=== PATIENT | female | born 1970 | race Caucasian/White ===

== ENCOUNTER 2020-05-06 14:22 | Outpatient (CLI) | payer OTHER, SELFPAY ==
[2020-05-06 15:40] LABS: Anion Gap 4 mmol/L (8-16); Blood Urea Nitrogen 15 mg/dL (7-17); Calcium 8.9 mg/dL (8.4-10.2); Carbon Dioxide 30 mmol/L (22-30); Chloride 105 mmol/L (98-107); Estimated Glomerular Filt Rate 59; Glucose 99 mg/dL (65-105); Potassium 4.2 mmol/L (3.4-5.0); Sodium 139 mmol/L (137-145)
[2020-05-06 16:10] LABS: Thyroid Stimulating Hormone 0.657 uIU/mL (0.465-4.680)
== END 2020-05-06 14:23 | disposition home or self-care (01) ==
LOC: ANHLAB 14:23
PROVIDERS: PCP Family Medicine; Visit Provider Nurse Practitioner Family
DX: E66.01 Morbid (severe) obesity due to excess calories (principal); F31.9 Bipolar disorder, unspecified; G47.33 Obstructive sleep apnea (adult) (pediatric)
CPT/HCPCS: 36415; 80048; 84443

== ENCOUNTER 2021-02-09 14:35 | Emergency (ER) | payer OTHER, SELFPAY ==
[2021-02-09 14:45] VITALS: BP 123/55; PULSE 88; RESP 18; TEMP 37.8; O2SAT 98
--- NOTE | 2021-02-09 14:50 | ED.EAR ---
HPI - Ear Problem General Chief complaint: Ear Stated complaint: Bilateral Ear Pain Source: patient Mode of arrival: ambulatory Limitations: no limitations History of Present Illness HPI Narrative: Patient is a 50-year-old female who presents complaining of bilateral ear pain x2 weeks, reports increasing pain to right ear after returning on airplane last week. She reports flu vaccine 2 days ago and reports generalized body aches and fatigue from such. She denies fever, sore throat or cough. Patient reports congestion. She reports taking [id number] medications with limited relief. She denies significant medical history. She denies known exposure to Covid. 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 MD Complaint: ear pain Related Data Allergies Allergy/AdvReac Type Severity Reaction Status Date / Time No Known Allergies Allergy Verified 02/09/21 14:58 Review of Systems Review of Systems: CONSTITUTIONAL: Denies fever, chills, or sweats. EYES: Denies visual changes, redness, or discharge. ENT: Denies rhinorrhea, sore throat, reports bilateral otalgia and congestion CARDIOVASCULAR: Denies chest pain, palpitations, or edema. RESPIRATORY: Denies cough or dyspnea. GASTROINTESTINAL: Denies abdominal pain, nausea, vomiting, or diarrhea. GENITOURINARY: Denies dysuria or hematuria. SKIN: Denies rash or itching. MUSCULOSKELETAL: Denies back pain, joint pain, or myalgia. NEUROLOGIC: Denies headache, numbness, dizziness, or weakness. PSYCHIATRIC: Denies anxiety or depression. [facility] Past Medical History Medical History Bipolar 1 disorder Bowel obstruction Cataract Cervical high risk human papillomavirus (HPV) DNA test positive Low blood pressure Morbid obesity Stomach ulcer Tobacco abuse Surgical History Surgical History History of tubal ligation Family History Family History Sibling Diabetes mellitus Grandparent Diabetes mellitus Father Hypertension Mother Hypertension Other Family history of autism Family history of lupus erythematosus Family history of neuropathy Social History Social History Smoking packs per day: 1 Smoking cigarettes per day: 20.0 Smoking status: Current every day smoker Second hand tobacco smoke exposure: No Alcohol intake: never Substance use: never Comments At the time of signature, I have reviewed and agree with nursing past medical, surgical, social, and family history unless otherwise noted. Please see nursing chart for further information. There is no relevant family history pertinent to the presenting complaint. Exam Narrative: GENERAL: Well-appearing, well-nourished, and in no acute distress. HEAD: Normocephalic, atraumatic. EYES: EOMI. No redness or drainage. Conjunctiva are normal. ENT: Mucous membranes pink and moist. Nares clear. No rhinorrhea. Right TM cloudy, bulging and injected, left TM injected. Throat normal. Uvula midline. NECK: AROM. Supple. No lymphadenopathy. CHEST: No respiratory distress. Clear to auscultation. HEART: Regular rate and rhythm. EXTREMITIES: Normal range of motion. SKIN: Warm, dry, no rash. NEURO: No focal deficits. Alert and oriented x3. Gait steady. PSYCH: Normal affect. No signs of depression or anxiety. Course Vital Signs Vital signs: Vital Signs Temperature 37.8 C H 02/09/21 14:45 Pulse Rate 88 02/09/21 14:45 Respiratory Rate 18 02/09/21 14:45 Blood Pressure 123/55 L 02/09/21 14:45 Pulse Oximetry 98 02/09/21 14:45 Temperature 37.8 C H 02/09/21 14:45 Pulse Rate 88 02/09/21 14:45 Respiratory Rate 18 02/09/21 14:45 Blood Pressure 123/55 L 02/09/21 14:45 Pulse Oximetry 98 02/09/21 14:45 Reviewed-patient is info
== END 2021-02-09 15:12 | disposition home or self-care (01) ==
PROVIDERS: Emergency Provider Nurse Practitioner; PCP Family Medicine
DX: H66.001 Acute suppurative otitis media without spontaneous rupture of ear drum, right ear (principal); J06.9 Acute upper respiratory infection, unspecified; F17.210 Nicotine dependence, cigarettes, uncomplicated; E66.01 Morbid (severe) obesity due to excess calories; Z68.43 Body mass index [BMI] 50.0-59.9, adult; H26.9 Unspecified cataract
CPT/HCPCS: 99213; G0463

== ENCOUNTER 2023-06-15 15:30 | Outpatient (CLI) | payer OTHER, SELFPAY ==
--- NOTE | ~2023-06-15 | CT_ITS ---
EXAMINATION: CT sinus wo con DATE: 06/15/2023 15:57 INDICATION: Chronic maxillary sinusitis. TECHNIQUE: Computed tomography (CT) of the paranasal sinuses was performed without intravenous contra st. Iterative reconstruction technique was employed. The dose-length product was 329.05 mGy-cm. COMPARISON: None FINDINGS: There is mild mucosal thickening in the frontal recesses, ethmoid sinuses, sphenoid sinuses , and maxillary sinuses. There is a mucous retention cyst in left maxillary sinus. The nasal septum i s at midline. The ostiomeatal units are occluded at the hiatus semilunaris on either side. IMPRESSION: 1. Mild mucosal thickening in the paranasal sinuses with occlusion of the ostiomeatal units. Reviewed, dictated and finalized at location A. IMPRESSION: 1. Mild mucosal thickening in the paranasal sinuses with occlusion of the ostio meatal units.
== END 2023-06-15 15:31 | disposition home or self-care (01) ==
LOC: ANHIMG 15:31
PROVIDERS: PCP Family Medicine; Visit Provider Otolaryngology
DX: J34.89 Other specified disorders of nose and nasal sinuses (principal); J32.0 Chronic maxillary sinusitis; J31.0 Chronic rhinitis; K21.9 Gastro-esophageal reflux disease without esophagitis
CPT/HCPCS: 70486

== ENCOUNTER 2023-06-18 08:49 | Outpatient (CLI) | payer OTHER, SELFPAY ==
--- NOTE | 2023-07-05 16:53 | WPDSLEEPSTUD ---
Sleep Study Date of Study: 06/18/23 Ordering Provider: Eran Renee MD Interpreting Physician: Shama Mayo DO Sleep Study Type: Split Polysomnogram Height: 1.65 m Weight: 158.757 kg Body Mass Index: 58.2 Neck Circumference (inches): 18.25 [place]: 0 Reason for Sleep Study Issues with current CPAP. Needs new equipment. Sleep History The patient is a 52-year-old female with bipolar disorder, morbid obesity, tobacco use and previously diagnosed sleep apnea on CPAP that had a sleep study ordered by her primary care to get new equipment. All of her sleep history is based on a when she is using her CPAP. The patient denies awakening from sleep short of breath. She denies awakening at night with heartburn, belching or cough. She denies snoring. She constantly has trouble sleeping when she has a cold. She denies waking up gasping for air throughout the night. She denies having breathing problems at night observed by herself or others. She occasionally sweats excessively at night. She denies having heart palpitations or irregular heartbeats during the night. She denies falling asleep during the day and while driving. She denies sleep paralysis, cataplexy and hypnagogic / hypnopompic hallucinations. She occasionally has trouble at school or work due to sleepiness. She occasionally feels afraid of going to sleep. She rarely has nightmares. She rarely remembers her dreams. She occasionally has thoughts racing through her mind. She occasionally feels sad, depressed and anxious. She occasionally has muscular tension. She rarely notices parts of her body jerk. She rarely kicks during the night. She rarely has crawling and aching feelings in her legs and rarely has leg pain during the night. She rarely grinds her teeth during sleep and rarely awakens with morning jaw pain. She is occasionally bothered by pain during the day and occasionally awakened by pain during the night. She frequently wakes up feeling stiff in the morning. She frequently wakes up with sore or achy muscles. She occasionally wakes up with pain in the neck, spine and other joints. She goes to bed at 10:00 p.m. days and between midnight to 1:00 a.m. on the weekends. The amount of time it takes for her to fall asleep is variable. It can range from minutes to hours. She does not typically wake up throughout the night. She wakes up at 5:30 a.m. on weekdays and at [place] on the weekends. She typically gets 5 hours of sleep per night. She does not stay in bed after waking up in the morning. She currently lives with her son. She denies consuming any caffeinated beverages within 2 hours of bedtime. She denies engaging in physical exercise before bedtime. She denies reading and watching television before falling asleep. She denies taking naps in the afternoon or the evening. She consumes 1 caffeinated beverage per day. She smokes 1 pack of cigarettes per day. She denies alcohol and recreational drug use. [facility] Past Medical History Medical History Bipolar 1 disorder Bowel obstruction Cataract Cervical high risk human papillomavirus (HPV) DNA test positive COVID Low blood pressure Morbid obesity Stomach ulcer Tobacco abuse Surgical History Surgical History History of tubal ligation Family History Family History Grandparent Diabetes mellitus Father Hypertension Kidney stones Mother Hypertension Depression Sibling , suicide Diabetes mellitus Hypertension Other Family history of autism Family history of lupus erythematosus Family history of neuropathy Social History Social History Smoking packs per day: 1 Smoking cigarettes per day: 20.0 Smoking status: Current every day smoker Sec
[2023-07-05 17:09] VITALS: BMI 58.2
== END 2023-06-19 07:04 | disposition home or self-care (01) ==
LOC: ANHCSM 08:50
PROVIDERS: PCP Family Medicine; Visit Provider Family Medicine
DX: G47.33 Obstructive sleep apnea (adult) (pediatric) (principal); E66.01 Morbid (severe) obesity due to excess calories
CPT/HCPCS: 95811

== ENCOUNTER 2024-02-22 17:08 | Emergency (ER) | payer OTHER, SELFPAY ==
--- NOTE | 2024-02-22 17:14 | ED_ITS ---
HPI - Ear Problem General Chief complaint: Ear Stated complaint: ear infection Time Seen by Provider: 02/22/24 17:14 Source: patient Mode of arrival: ambulatory Limitations: no limitations History of Present Illness HPI Narrative: Zehra is a 53-year-old female patient presenting to the clinic today with complaints of right ear pain x3 days. She reports has left external ear pain with yellow discharge coming from the right ear. Denies any fever, chills, or body aches. Related Data Home Medications Medication Instructions Recorded Confirmed loratadine 10 mg tablet 10 mg PO DAILY 04/19/23 02/22/24 Allergies Allergy/AdvReac Type Severity Reaction Status Date / Time No Known Allergies Allergy Verified 02/22/24 17:17 Review of Systems Review of Systems: Pertinent positives per HPI. Patient denies any fever, chills, rash, headache, visual changes, dizziness, cough, runny nose, sore throat, shortness of breath, chest pain, palpitations, nausea, vomiting, diarrhea, constipation, abdominal pain, or any urinary issues. [facility] Past Medical History Medical History Bipolar 1 disorder Bowel obstruction Cataract Cervical high risk human papillomavirus (HPV) DNA test positive COVID Low blood pressure Morbid obesity Stomach ulcer Tobacco abuse Surgical History Surgical History History of tubal ligation Family History Family History Grandparent Diabetes mellitus Father Hypertension Kidney stones Mother Hypertension Depression Sibling , suicide Diabetes mellitus Hypertension Other Family history of autism Family history of lupus erythematosus Family history of neuropathy Social History Social History Smoking packs per day: 1 Smoking cigarettes per day: 20.0 Smoking status: Current every day smoker Second hand tobacco smoke exposure: No Alcohol intake: never Substance use: never Substance use type: does not use Lack of Transportation: No Lack of Food: Never True Current Housing: I Have Housing Concerned About Future Housing: No Difficulty Paying Gas/Electric Bills: No Difficulty Paying for Meds: No Currently Unemployed: No Education: Bachelor's Degree Difficulty w/ Childcare or Family Care: No Living arrangements: with family Occupation/Education: occupation 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 There is no relevant family history pertinent to the patient complaint. Exam Narrative: General: Well-developed, morbidly obese, in no apparent distress Head: Normocephalic, atraumatic Eyes: Pupils equally round and reactive to light bilaterally, EOM intact, sclera and conjunctive clear, no discharge, lids normal Ears: TMs intact and clear, left ear canals clear, right ear canal swollen and red with yellow mucopurulent discharge,grossly hearing normal. Nose: Nares patent, no discharge, no inflammation, no sinus tenderness. Mouth: Oropharynx without lesions or masses, good dentition, MMM. Neck: Supple, trachea midline, no enlargement of anterior or posterior cervical nodes, no thyroid masses or goiter palpable. Cardio: Regular rate and rhythm, s1 and s2 normal, no murmur appreciated. Resp: Clear to auscultation bilaterally anteriorly and posteriorly, no rhonchi, rales, wheezing or rubs Course Course Emergency Course: Portions of this record may have been created with voice recognition software. Level of Care: Express Care Visit Vital Signs Vital signs: Vital signs reviewed Medical Decision Making MDM Narrative Medical decision making narrative: At the time of visit patient is resting comfortably on the exam table. Patient appears to be nontoxic. Plan: I suspect patient has otitis externa. Prescription for ofloxacin ear drops was sent to the pharmacy. Supportive measures were discussed with the patient and they voiced understanding discharge instructions and agrees to treatment plan. Return precautions reviewed Differential Diagnosis Differential Diagnosis: Otitis media, otitis externa, eustachian tube dysfunction, cerumen impaction, upper respiratory infection, serous otitis Discharge Plan Discharge Clinical Impression: Otitis externa Qualifiers: Otitis externa type: unspecified type Chronicity: acute Laterality: right Qualified Code(s): H60.501 - Unspecified acute noninfective otitis externa, right ear Patient Disposition: Home, Self-Care Condition: Stable Instructions: Antibiotic Form, Swimmer's Ear (ED) Additional Instructions: Take any prescribed medications only as directed-ofloxacin ear drops Tylenol/motrin as needed for pain May use heating pad to alleviate pain If you get recurrent ear infections it may be warranted to follow up with ENT. Follow up with your PCP in 3-5 days if symptoms persist. Prescriptions: New ofloxacin 0.3 % drops 5 drp otic (ear) BID 7 Days Qty: 5 0RF No Action loratadine 10 mg tablet 10 mg PO DAILY furosemide [Lasix] 20 mg tablet 20 mg PO QAM Qty: 30 2RF Follow-up/Referrals: Eran Renee MD [Primary Care Provider] - Time of Disposition: 17:28 Quality NIHSS Nursing Documentation ED NIHSS nursing documentation: reviewed/agree
[2024-02-22 17:20] VITALS: BP 120/69; PULSE 102; RESP 18; TEMP 36.4; O2SAT 98
== END 2024-02-22 17:30 | disposition home or self-care (01) ==
PROVIDERS: Emergency Provider Nurse Practitioner Family; PCP Family Medicine
DX: H60.501 Unspecified acute noninfective otitis externa, right ear (principal); F17.210 Nicotine dependence, cigarettes, uncomplicated; E66.9 Obesity, unspecified; Z68.44 Body mass index [BMI] 60.0-69.9, adult
CPT/HCPCS: 99213; G0463

== ENCOUNTER 2024-06-02 10:47 | Outpatient (CLI) | payer OTHER, SELFPAY | END 2024-06-02 10:48 | disposition home or self-care (01) | LOC: ANHIMG 10:49 | PROVIDERS: PCP Family Medicine; Visit Provider Physician Assistant Medical | DX: R06.02 Shortness of breath (principal); Z72.0 Tobacco use | CPT/HCPCS: 71046 ==

== ENCOUNTER 2024-06-22 13:38 | Outpatient (CLI) | payer OTHER, SELFPAY ==
--- OUTSIDE RECORDS SUMMARY | 2024-06-22 14:02 | XMS_ITS | Clinical Summary ---
Author Organization [facility] Address [facility] [place] [address] Care Team Providers Care Geospatial Analyst Name Role Phone Eran Renee MD Primary Care Provider [phone] Allergies No known active allergies Medications ketorolac 0.5 % ophthalmic solution 2 Active mupirocin 2 % ointment Apply topically 2 (two) times daily. 2 Active ofloxacin 0.3 % ophthalmic solution INSTILL 1 DROP TO SURGICAL EYE THREE TIMES DAILY. START 2 DAYS BEFORE SURGERY 2 Active prednisoLONE acetate 1 % ophthalmic suspension 2 Active Active Problems Problem Noted Date Diagnosed Date Sudden of family member 12/30/2017 Abscess of leg, left 06/11/2015 Acid reflux 06/11/2015 Bipolar disorder, unspecified ([facility]) 06/11/2015 Staph infection 06/11/2015 Abdominal pain 02/21/2015 Cholelithiasis without obstruction 02/21/2015 Resolved Problems Problem Noted Date Diagnosed Date Resolved Date Encounter for preventive health examination 04/20/2013 09/01/2021 Encounters Date Type Department Care Team Description 04/03/2024 10:25 AM LAMP REPLACER - 04/03/2024 11:59 PM LAMP REPLACER Hospital Encounter [facility] [address] [place] [address] Cande Kiran NP Discharge Disposition: Home or Self Care (Routine Discharge) 04/03/2024 Orders Only [facility] [address] [place] [address] Cande Kiran NP 04/03/2024 Travel from Last 3 Months Immunizations Name Administration Dates Next Due MODERNA COVID-19 (12+) MRNA, LNP-S, PF, 100 MCG/ 0.5 ML DOSE 05/16/2020,04/19/2020 Tdap (Boostrix) 08/21/2022 Family History Medical History Relation Comments Sleep Apnea Father Relation Status Comments Father Alive Mother Alive Social History Tobacco Use Types Packs/Day Years Used Date Smoking Tobacco: Every Day Cigarettes 1 35 Smokeless Tobacco: Never Tobacco Cessation:Ready to Q uit: No; Counseling Given: Yes Alcohol Use Standard Drinks/Week Comments No 0 (1 standard drink = 0.6 oz pur e alcohol) AUDIT-C Answer Date Recorded Frequency of Alcohol Consumption Never 12/01/2018 Average Number of Drinks Not on file 019 Frequency of Binge Drinking Not on file 11/04 Comments No Sex and Gender Information Value Date Recorded Sex Assigned at Not on file Legal Sex Female 8:00 PM CDT Gender Identity Not on file Sexual Orientation Not on file Last Filed Vital Signs Vital Sign Reading Time Taken Comments Blood Pressure 121/87 08/21/2022 9:05 PM CDT Pulse 85 08/21/2022 9:05 PM CDT Temperature 36.3 C (97.3 F) 08/21/2022 9:05 PM CDT Respiratory Rate 18 08/21/2022 9:05 PM CDT Oxygen Saturation 95% 08/21/2022 9:05 PM CDT Inhaled Oxygen Concentration - - Weight 155.6 kg (343 lb) 08/21/2022 6:59 PM CDT Height 165.1 cm (5' 5 ) 08/21/2022 6:59 PM CDT Body Mass Index 57.08 08/21/2022 6:59 PM CDT Plan of Treatment Health Maintenance Due Date Last Done Comments Colorectal Cancer Screening Colonoscopy (10 Years) 1971 Annual Physical 10/24/1974 Pneumococcal Vaccine: Pediatrics (0 to 5 Years) and At-Risk Patients (6 to 64 Years) (1 of 2 - PCV) 10/24/1977 PHQ-2 (Physician [place]) 1983 Hepatitis C 10/24/1989 Hepatitis B Vaccines (1 of 3 - 19+ 3-dose series) 10/24/1990 Cervical Cancer Screening Pa p with HPV Testing (Age 30 to 64) Every 5 Years 10/24/2001 Mammogram Screening 2011 Zoster Vaccines (1 of 2) 10/24/2021 COVID-19 Vaccine (3 - 2023-2 5 season) 2023 05/16/2020, 04/19/2020 Influenza Adult (#1) 2024 01/30/2016 PHQ-2 (Physician [place]) 04/05/2024 Cervical Cancer Screening Pa p Smear (Age 30 to 64) Every 3 Years 08/25/2025 08/25/2022 Cervical Cancer Screening wi th HPV 08/25/2025 DTaP, Tdap and Td Vaccines ( 2 - Td or Tdap) 08/21/2032 08/21/2022, 12/07/2000 Meningococcal B Vaccine Aged Out No l onger eligible based on patient's age to complete this topic Meningococcal Vaccine Aged Out No myron марина eligible based on patient's age to complete this topic RSV Immunizations Under 20 Months Aged Out No longer eligible b ased on patient's age to complete this topic Procedures Procedure Name Priority Date/Time Associated Diagnosis Comments BASIC METABOLIC PANEL Routine 04/03/2024 10:34 AM LAMP REPLACER Edema from Last 3 Months Results * (ABNORMAL) BASIC METABOLIC PANEL (04/03/2024 10:34 AM LAMP REPLACER) GLUCOSE 96 70 - 99 MG/DL 04/03/2024 11:09 AM [facility] BUN 13 7 - 18 MG/DL 04/03/2024 11:09 AM [facility] CREATININE S/P/B 0.81 0.55 - 1.02 MG/DL 04/03/2024 11:09 AM [facility] SODIUM S/P/B 141 136 - 145 MMOL/L 04/03/2024 11:09 AM [facility] POTASSIUM S/P/B 4.3 3.5 - 5.1 MMOL/L 04/03/2024 11:09 AM [facility] CHLORIDE S/P/B 106 100 - 108 MMOL/L 04/03/2024 11:09 AM [facility] CO2 25.6 21 - 32 MMOL/L 04/03/2024 11:09 AM [facility] CALCIUM S/P/B 9.2 8.5 - 10.1 MG/DL 04/03/2024 11:09 AM [facility] ANION GAP 9.4 5 - 15 MMOL/L 04/03/2024 11:09 AM [facility] BUN CREATININE RATIO 16.0 6 - 26 04/03/2024 11:09 AM [facility] GFR ESTIMATE 87(L) >90 ML/MIN/1.7 3 M2 04/03/2024 11:09 AM [facility] Comment: NOTE: eGFR is not calculated for patients <18 years of age. This is an estimated GFR calculation using the new CKD EPI creatinine equation without race and so does not require a correction factor for race. This estimated GFR should not be used for calculating drug doses. 04/03/2024 10:3 4 AM LAMP REPLACER us Cande Kiran NP LABORATORY Final Result [facility] [address] [place] [address], [place] [phone] from Last 3 Months Insurance [employer] OPEN ACCESS [facility] Member Subscriber Plan / Payer (Ef fective 2023-Present) Name:Zehra Yeboah Relation to Subscriber:Self Name:Zehra Yeboah Payer ID:Not on file Group ID:Not on file Type:Not on file Address: [facility] [id number] [place] [id number] Care Teams Geospatial Analyst Relationship Specialty Start Date End Date Eran Renee MD [address] [address] PCP - General FAMILY PRACTICE 12/15/23
--- OUTSIDE RECORDS SUMMARY | 2024-06-22 14:02 | XMS_ITS | Encounter Summary ---
Author Organization [facility] Address [address] [place] [address] Phone Care Team Providers Care Golf Course Designer Name Role Phone Provider, None Primary Care Provider Eran Contreras MD Primary Care Provider [phone] Encounter Details Date Type Department Care Team (Latest Contact Info) Description 10/12/2022 Transcribe [facility] [address] [place] [id number] Felix Godfrey MD [address] [place] [address] Dysfunctional uterine bleeding (Primary Dx); Pre-op testing Social History Tobacco Use Types Packs/Day Years Used Date Smoking Tobacco: Every Day Cigarettes Smokeless Tobacco: Never Alcohol Use Standard Drinks/Week Comments No 0 (1 standard drink = 0.6 oz pur e alcohol) Sexually Active Control Partners Comments Never Abstinence Comments No Sex and Gender Information Value Date Recorded Sex Assigned at Not on file Legal Sex Female 11:42 AM CDT Gender Identity Not on file Sexual Orientation Not on file COVID-19 Exposure Response Date Recorded In the last 10 days, have yo u been in contact with someone who was confirmed or suspected to have Coronavirus/COVID-19? No / Unsure 10/13/2022 2:04 PM CDT documented as of this encounter Plan of Treatment Not on file documented as of this encounter Visit Diagnoses Diagnosis Dysfunctional uterine bleeding- Primary Other disorder of menstruation and other abnormal bleeding from female genital tract Pre-op testing Preoperative examination, unspecified documented in this encounter Care Teams Golf Course Designer Relationship Specialty Start Date End Date Provider, None [place] PCP - General 12/30/17 10/21/22 Eran Renee MD [address] [place] [address] PCP - General Family Medicine 10/22/22 documented as of this encounter
--- OUTSIDE RECORDS SUMMARY | 2024-06-22 14:02 | XMS_ITS | Clinical Summary ---
Author Organization [facility] Address [address] [place] [address] Phone Care Team Providers Care Repair Table Operator Name Role Phone Eran Renee MD Primary Care Provider [phone] Allergies No known active allergies Medications ibuprofen (MOTRIN) 200 MG Tablet Take 200 mg by mouth every 8 hours as needed. Active Active Problems Problem Noted Date Diagnosed Date Bipolar II disorder 12/30/2017 Sudden of family member 12/30/2017 Immunizations Immunization Administration Dates Next Due Covid-19, Mrna, Lnp-s, Pf, 1 00 Mcg Or 50 Mcg Dose (MODERNA) 05/16/2020,04/19/2020 TDAP Vaccine 08/21/2022 Family History Medical History Relation Name Comments Hypertension Father Obstructive Sleep Apnea Father Congestive Heart Failure Mother Depression Mother Hypertension Mother Relation Name Status Comments Father Alive Mother Alive Social History Tobacco Use Types Packs/Day Years Used Date Smoking Tobacco: Every Day Cigarettes Smokeless Tobacco: Never Alcohol Use Standard Drinks/Week Comments Not Currently 0 (1 standard drink = 0.6 oz pur e alcohol) Sexually Active Control Partners Comments Never Abstinence Comments No Sex and Gender Information Value Date Recorded Sex Assigned at Not on file Legal Sex Female 11:42 AM CDT Gender Identity Not on file Sexual Orientation Not on file Last Filed Vital Signs Vital Sign Reading Time Taken Comments Blood Pressure 142/92 11/03/2022 1:08 PM CDT Pulse 104 11/03/2022 1:08 PM CDT Temperature 36.5 C (97.7 F) 11/03/2022 1:08 PM CDT Respiratory Rate 20 11/03/2022 1:08 PM CDT Oxygen Saturation 98% 11/03/2022 1:08 PM CDT Inhaled Oxygen Concentration - - Weight 159.7 kg (352 lb) 11/03/2022 1:08 PM CDT Height 162.6 cm (5' 4 ) 11/03/2022 1:08 PM CDT Body Mass Index 60.42 11/03/2022 1:08 PM CDT Plan of Treatment Health Maintenance Due Date Last Done Comments Hepatitis C Virus (HCV) Screening 1970 Mammogram 1970 Pneumococcal Immunization (5 0+ years) (1 of 2 - PCV) 10/24/1990 HPV/Cotest 10/24/2001 Hepatitis B Immunization (3 of 3 - 19+ 3-dose series) 12/19/2003 08/06/2003, 06/18/2003 Colonoscopy 10/24/2016 Colorectal Cancer Screening 10/24/2016 Cologuard 10/24/2021 Immunochemical Fecal Occult Blood 10/24/2021 Zoster Immunization (1 of 2) 10/24/2021 Influenza Immunization (#1) 2023 01/30/2016 SARS-COV-2 Immunization ( - 2023- season) 2023 05/16/2020, 04/19/2020 Cervical Cancer Screening (CCS) 08/25/2025 Pap Smear 08/25/2025 08/25/2022 Td Immunization Every 10 Yea rs (Adults With 1 Tdap) 08/21/2032 08/21/2022, 12/07/2000 Respiratory Syncytial Virus (RSV) Immunization (Adult) (1 - 1-dose 75+ series) 10/24/2046 DTaP/Tdap/Td Immunization Discontinued 2022, 12/07/2000 Meningococcal Immunization (ACWY) Aged Out No longer eligible based on patient's age to complete this topic Rotavirus Immunization Aged Out No lo nger eligible based on patient's age to complete this topic Procedures Procedure Name Priority Date/Time Associated Diagnosis Comments PATHOLOGY CYTOLOGY LABORER EGG PRODUCING FARM Routine 08/25/2022 3:30 PM CDT Screening for cervical cancer from Last 3 Months or Most Recently Relevant to Health Maintenance Results * PATHOLOGY CYTOLOGY LABORER EGG PRODUCING FARM (08/25/2022 3:30 PM CDT) SPECIMEN ADEQUACY Satisfactory for evaluation. Endocervical/transf ormation zone component is present. 08/27/2022 2:11 PM CDT [facility] DESCRIPTIVE DIAGNOSIS NEGATIVE FOR INTRAEPITHELIAL LESIONS OR MALIGNANCY. 08/27/2022 2:11 PM CDT [facility] Automated Examination Analysis of this sample has been assisted by an automated imaging and review system ([employer] System, [employer], [place], [place]). This case is further evaluated and finalized by a asphalt still operator and/or pathologist. 08/27/2022 2:11 PM CDT [facility] Disclaimer The PAP smear is a screening test designed to detect cancerous or precancerous cells of the uterine cervix. It is one of the best means available for detection of cervical cancer but still carries an inherent false-negative rate. The consequences of a false-negative PAP result can be minimized by adhering to current screening guidelines. The following are general guidelines recommended by the ACS, ASCP, ASCCP, and ACOG: PAP testing is recommended every three years for women 21-29, Co-Testing , a PAP test in conjunction with an HPV (Human Papillomavirus) test for women ages 30-65, and no PAP or HPV testing for women under the age of 21 or older than 65 unless clinically indicated. 08/27/2022 2:11 PM CDT [facility] Other CERVIX UTERI STRUCTURE / Unknown Non-Phlebotomy Collection / Unknown 08/25/2022 3:30 PM CDT 08/25/2022 3:30 PM CDT us Melva Lopez APRN, UX DESIGN MANAGER PATHOLOGY/CYTOLOGY ORDER ANNI Final Result [facility] [address] [place] [address], [place] from Last 3 Months or Most Recently Relevant to Health Maintenance Insurance [employer]I Advance Directives Documents on File Type Date Recorded Patient Rolling Down Machine Operator Expl anation Power of Cost Consultant for Health Care 10/22/2022 5:26 AM POA Care Teams Repair Table Operator Relationship Specialty Start Date End Date Eran Renee MD [address] [place] [address] PCP - General Family Medicine 10/22/22
--- NOTE | 2024-06-23 14:14 | WPDPFTINT ---
PFT Procedure Performed PFT Procedure Performed Spirometry with Pre/Post Bronchodilator Plethysmography (Lung Vol) Diffusing Cap (DLCO) Flow Vol Loop PFT Interpretation Lung volumes were measured with the body plethysmography method. The diminished expiratory reserve volume is due to obesity. The remaining lung volumes are unremarkable. Spirometry showed normal expiratory flow rates and a normal FEV1 to FVC ratio of 86%. Following administration of a bronchodilator there was no significant increase in expiratory flow rates. Lung diffusion capacity is moderately reduced at 47% predicted. The flow volume loop is unremarkable. Impression: Spirometry and lung volumes within the normal range. Moderately reduced lung diffusion capacity.
== END 2024-06-22 13:39 | disposition home or self-care (01) ==
LOC: ANHPFT 13:38
PROVIDERS: PCP Family Medicine; Visit Provider Physician Assistant Medical
DX: R06.02 Shortness of breath (principal); Z72.0 Tobacco use
CPT/HCPCS: 94060; 94726; 94729

== ENCOUNTER 2024-12-19 08:59 | Outpatient (CLI) | payer OTHER, SELFPAY ==
[2024-12-19 09:26] LABS: Hematocrit 46.4 % (37.0-47.0); Hemoglobin 15.0 g/dL (12.0-15.0); Immature Granulocyte Percent A 0.4 % (0-0.5); Lymphocytes Absolute Auto 2.10 K/mm3 (0.9-3.2); Mean Corpuscular HGB Conc 32.3 g/dl (32-36); Mean Corpuscular Hemoglobin 29.8 pg (26-34); Mean Corpuscular Volume 92.1 fl (80-100); Nucleated Red Blood Cells Absolute Auto 0.000 K/mm3 (0.0-0.012); Nucleated Red Blood Cells Perc 0.0 % (0.0-0.2); Platelet Count Result 248 k/mm3 (150-375); Red Blood Count 5.04 M/mm3 (4.2-5.4); White Blood Count 7.8 K/mm3 (4.5-10.0)
[2024-12-19 09:47] LABS: Alanine Aminotransferase 41 U/L (6-35); Albumin Level 4.4 g/dL (3.5-5.1); Alkaline Phosphatase 163 U/L (38-126); Anion Gap 10 mmol/L (4-12); Aspartate Amino Transferase 30 U/L (14-36); Bilirubin,Total 0.3 mg/dL (0.2-1.3); Blood Urea Nitrogen 13 mg/dL (7-17); Calcium 9.3 mg/dL (8.4-10.2); Carbon Dioxide 23 mmol/L (22-30); Chloride 105 mmol/L (98-107); Cholesterol 164 mg/dL (0-200); Estimated Glomerular Filt Rate > 60; Glucose 101 mg/dL (65-110); HDL Direct 46 mg/dL; Potassium 4.4 mmol/L (3.4-5.0); Sodium 138 mmol/L (137-145); Total Protein 7.8 g/dL (6.3-8.2); Triglycerides 174 mg/dL (<150)
--- OUTSIDE RECORDS SUMMARY | 2024-12-19 10:06 | XMS_ITS | Encounter Summary ---
Author Organization [facility] Address [address] [place] [address] Phone Care Team Providers Care Eligibility Technician Name Role Phone Provider, None Primary Care Provider Eran Contreras MD Primary Care Provider Encounter Details Date Type Department Care Team (Latest Contact Info) Description 10/12/[address] [facility] Preop[facility]Pacu II [address] [place] [id number] Felix Godfrey MD [address] [place] [address] Dysfunctional uterine bleeding (Primary Dx); [...] unspecified documented in this encounter Care Teams Eligibility Technician Relationship Specialty Start Date End Date Provider, None [place] PCP - General 12/30/17 10/21/22 Eran Renee MD [address] [place] [address] PCP - General Family Medicine 10/22/22 documented as of this encounter
--- OUTSIDE RECORDS SUMMARY | 2024-12-19 10:06 | XMS_ITS | Clinical Summary ---
Author Organization [facility] Address [address] [place] [address] Phone Care Team Providers Care Clothes Marker Name Role Phone Eran Renee MD Primary Care Provider [phone] Allergies No known active allergies Medications ibuprofen [...] 1:08 PM CDT Height 162.6 cm (5' 4) 11/03/2022 1:08 PM CDT Body Mass Index 60.42 11/03/2022 1:08 PM CDT Plan of Treatment Health Maintenance Due Date Last Done Comments Hepatitis C Virus (HCV) Screening 1971 HPV/Cotest 10/24/2001 Hepatitis B Immunization (3 of 3 - 19+ 3-dose series) 12/19/2003 08/06/2003, 06/18/2003 Cologuard 10/24/2016 Colonoscopy 10/24/2016 Colorectal Cancer Screening 10/24/2016 Immunochemical Fecal Occult Blood 10/24/2016 Pneumococcal Immunization (5 0+ years) (1 of 1 - PCV) 10/24/2021 Zoster Immunization (1 of 2) 10/24/2021 Influenza Immunization (#1) 2024 01/30/2016 SARS-COV-2 Immunization (3 - season) 2024 05/16/2020, 04/19/2020 Cervical Cancer Screening (CCS) 08/25/2025 Pap Smear 08/25/2025 08/25/2022 Td Immunization Every 10 Yea rs (Adults With 1 Tdap) 08/21/2032 08/21/2022, 12/07/2000 Respiratory Syncytial Virus (RSV) Immunization (Adult) (1 - 1-dose 75+ series) 10/24/2046 DTaP/Tdap/Td Immunization Discontinued 2022, 12/07/2000 Human Papillomavirus (HPV) Immunization Aged Out No longer eligible based on patient's age to complete this topic Meningococcal Immunization (ACWY) Aged Out No longer eligible based on patient's age to complete this topic Rotavirus Immunization Aged Out No lo nger eligible based on patient's age to complete this topic Procedures Procedure Name Priority Date/Time Associated Diagnosis Comments PATHOLOGY CYTOLOGY MANAGER CONTRACTING Routine 08/25/2022 3:30 PM CDT Screening for cervical cancer from Last 3 Months or Most Recently Relevant to Health Maintenance Results * PATHOLOGY CYTOLOGY MANAGER CONTRACTING (08/25/2022 3:30 PM CDT) SPECIMEN ADEQUACY Satisfactory for evaluation. Endocervical/transf ormation zone component is present. 08/27/2022 2:11 PM CDT [facility] DESCRIPTIVE DIAGNOSIS NEGATIVE FOR INTRAEPITHELIAL LESIONS OR MALIGNANCY. 08/27/2022 2:11 PM CDT [facility] at 1411 CDT Automated Examination Analysis of this sample has been assisted by an automated imaging and review system ([employer] System, [employer], [place], [place]). This case is further evaluated and finalized by a foreign food cook specialty and/or pathologist. 08/27/2022 2:11 PM CDT [facility] Disclaimer The PAP smear is a screening [...] recommended every three years for women 21-29, Co-Testing, a PAP test in conjunction with an HPV (Human Papillomavirus) test for women ages 30-65, and no PAP or HPV testing for women under the age of 21 or older than 65 unless clinically indicated. 08/27/2022 2:11 PM CDT [facility] Other CERVIX UTERI STRUCTURE / Unknown Non-Phlebotomy Collection / Unknown 08/25/2022 3:30 PM CDT 08/25/2022 3:30 PM CDT us Melva Lopez APRN, GUEST HOUSE MANAGER PATHOLOGY/CYTOLOGY ORDER ANNI Final Result [facility] [address] [place] [address], [place] from Last 3 Months or Most Recently Relevant to Health Maintenance Insurance [employer] Advance Directives Documents on File Type Date Recorded Patient Election Watcher Expl anation Power of Survey Worker for Health Care 10/22/2022 5:26 AM POA Care Teams Clothes Marker Relationship Specialty Start Date End Date Eran Renee MD [address] [place] [address] PCP - General Family Medicine 10/22/22
[2024-12-19 10:41] LABS: Vitamin B12 366.0 pg/mL (239-931)
[2024-12-21 14:08] LABS: ANA by IFA Rfx Titer/Pattern Negative (.)
== END 2024-12-19 09:00 | disposition home or self-care (01) ==
LOC: ANHLAB 09:01
PROVIDERS: PCP Family Medicine; Visit Provider Physician Assistant Medical
DX: E78.5 Hyperlipidemia, unspecified (principal); G47.33 Obstructive sleep apnea (adult) (pediatric); F31.9 Bipolar disorder, unspecified; R20.0 Anesthesia of skin; R20.2 Paresthesia of skin; M25.50 Pain in unspecified joint; Z72.0 Tobacco use
CPT/HCPCS: 36415; 80053; 80061; 82607; 85025; 86038; 86430

== ENCOUNTER 2025-01-30 07:48 | Outpatient (CLI) | payer OTHER, SELFPAY ==
--- OUTSIDE RECORDS SUMMARY | 2025-01-30 07:53 | XMS_ITS | Clinical Summary ---
Author Organization [facility] Address [address] [place] [address] Phone Care Team Providers Care Gem Carver Name Role Phone Eran Renee MD Primary Care Provider [phone] Allergies No known active allergies Medications ibuprofen [...] Priority Date/Time Associated Diagnosis Comments PATHOLOGY CYTOLOGY CRIMINAL JUSTICE FACULTY Routine 08/25/2022 3:30 PM CDT Screening for cervical cancer from Last 3 Months or Most Recently Relevant to Health Maintenance Results * PATHOLOGY CYTOLOGY CRIMINAL JUSTICE FACULTY (08/25/2022 3:30 PM CDT) SPECIMEN ADEQUACY Satisfactory for evaluation. Endocervical/transf ormation zone component is present. 08/27/2022 2:[address] [facility] DESCRIPTIVE DIAGNOSIS NEGATIVE FOR INTRAEPITHELIAL LESIONS OR MALIGNANCY. 08/27/2022 2:[address] [facility] at 1411 CDT Automated Examination Analysis of this sample has been assisted by an automated imaging and review system ([employer] System, [employer], [place], [place]). This case is further evaluated and finalized by a clinical research administrator and/or pathologist. 08/27/2022 2:[address] [facility] Disclaimer The PAP smear is a screening [...] unless clinically indicated. 08/27/2022 2:[address] [facility] Other CERVIX UTERI STRUCTURE / Unknown Non-Phlebotomy Collection / Unknown 08/25/2022 3:30 PM CDT 08/25/2022 3:30 PM CDT us Melva Lopez APRN, RECRUITING OPERATIONS CONSULTANT PATHOLOGY/CYTOLOGY ORDER ANNI Final Result [facility] [address] [place] [address], [place] from Last 3 Months or Most Recently Relevant to Health Maintenance Insurance [employer] Advance Directives Documents on File Type Date Recorded Patient Licensed Loan Officer Assistant Expl anation Power of Channel Machine Operator for Health Care 10/22/2022 5:26 AM POA Care Teams Gem Carver Relationship Specialty Start Date End Date Eran Renee MD [address] [place] [address] PCP - General Family Medicine 10/22/22
--- OUTSIDE RECORDS SUMMARY | 2025-01-30 07:53 | XMS_ITS | Encounter Summary ---
Author Organization [facility] Address [address] [place] [address] Phone Care Team Providers Care Heel Cementer Machine Name Role Phone Provider, None Primary Care Provider Eran Contreras MD Primary Care Provider [phone] Encounter Details Date Type Department Care Team (Latest Contact Info) Description 10/12/2022 [facility] [address] [place] [id number] Felix Godfrey MD [address] [place] [address] Dysfunctional uterine bleeding (Primary Dx); [...] unspecified documented in this encounter Care Teams Heel Cementer Machine Relationship Specialty Start Date End Date Provider, None [place] PCP - General 12/30/17 10/21/22 Eran Renee MD [address] [place] [address] PCP - General Family Medicine 10/22/22 documented as of this encounter
[2025-01-30 08:54] LABS: Alanine Aminotransferase 36 U/L (6-35); Albumin Level 4.1 g/dL (3.5-5.1); Alkaline Phosphatase 157 U/L (38-126); Aspartate Amino Transferase 29 U/L (14-36); Bilirubin,Total 0.4 mg/dL (0.2-1.3); Total Protein 7.3 g/dL (6.3-8.2)
== END 2025-01-30 07:49 | disposition home or self-care (01) ==
LOC: ANHLAB 07:50
PROVIDERS: PCP Physician Assistant Medical; Visit Provider Physician Assistant Medical
DX: R79.89 Other specified abnormal findings of blood chemistry (principal)
CPT/HCPCS: 36415; 80076

== ENCOUNTER 2025-02-06 17:25 | Outpatient (CLI) | payer OTHER, SELFPAY ==
[2025-02-06 19:33] LABS: Hepatitis B Surface Antigen Negative (Negative)
[2025-02-06 19:39] LABS: HAV RESULT Negative (Negative); Hepatitis B Core IgM Result Negative (Negative)
== END 2025-02-06 17:26 | disposition home or self-care (01) ==
LOC: ANHLAB 17:27
PROVIDERS: PCP Physician Assistant Medical; Visit Provider Physician Assistant Medical
DX: R79.89 Other specified abnormal findings of blood chemistry (principal)
CPT/HCPCS: 36415; 80074

== ENCOUNTER 2025-03-23 07:14 | Outpatient (CLI) | payer OTHER, SELFPAY ==
--- NOTE | ~2025-03-23 | US_ITS ---
EXAMINATION: US abdomen complete, 03/23/2025 7:44 AUTO FORMER MACHINE OPERATOR HISTORY: R79.89 - Other specified abnormal findings of blood chemi... COMPARISON: None Technique: Brunner-scale and color Doppler images were obtained. Findings: LIVER: Moderate increased echogenicity of the liver. . GALLBLADDER/BILIARY: Minimal gallbladder wall thickening 4 mm with minimal cholelithiasis, no pericholecystic fluid. CBD 5 mm. Renville sign negative. PANCREAS: Pancreas limited by bowel gas. SPLEEN: Unremarkable, no splenomegaly. KIDNEYS: Right Kidney: Right kidney 12.5 x 5 cm, normal. Left Kidney: Left kidney 12 x 6 x 5 cm, normal. AORTA: Aorta not visualized due to bowel gas. IVC: Unremarkable. FREE FLUID: None. Impression: 1. Moderate hepatic steatosis. 2. Minimal cholelithiasis. 3. Pancreas and aorta are not clearly visualized. Reviewed, dictated and finalized at location P. FORMER MACHINE OPERATOR Impression: 1. Moderate hepatic steatosis. 2. Minimal cholelithiasis. 3. Pancreas and aorta are not clearly visualized.
--- OUTSIDE RECORDS SUMMARY | 2025-03-23 07:16 | XMS_ITS | Clinical Summary ---
Author Organization [facility] Address [address] [place] [address] Phone Care Team Providers Care Final Assembly Inspector Name Role Phone Eran Renee MD Primary Care Provider [phone] Allergies No known active allergies Medications ibuprofen [...] Discontinued 2022, 12/07/2000 Human Papillomavirus (HPV) Immunization (No Doses Required) Completed Meningococcal Immunization (ACWY) Aged Out No longer eligible based on patient's age to complete this topic Rotavirus Immunization Aged Out No lo nger eligible based on patient's age to complete this topic Procedures Procedure Name Priority Date/Time Associated Diagnosis Comments PATHOLOGY CYTOLOGY WATER RESOURCE ENGINEER Routine 08/25/2022 3:30 PM CDT Screening for cervical cancer from Last 3 Months or Most Recently Relevant to Health Maintenance Results * PATHOLOGY CYTOLOGY WATER RESOURCE ENGINEER (08/25/2022 3:30 PM CDT) SPECIMEN ADEQUACY Satisfactory for evaluation. Endocervical/transf ormation zone component is present. 08/27/2022 2:11 PM CDT [facility] DESCRIPTIVE DIAGNOSIS NEGATIVE FOR INTRAEPITHELIAL LESIONS OR MALIGNANCY. 08/27/2022 2:11 PM CDT [facility] at 1411 CDT Automated Examination Analysis of this sample has been assisted by an automated imaging and review system ([employer] System, [employer], [place], [place]). This case is further evaluated and finalized by a certification and selection specialist and/or pathologist. 08/27/2022 2:11 PM CDT [facility] Disclaimer The PAP smear is a [...] unless clinically indicated. 08/27/2022 2:11 PM CDT [facility] Other CERVIX UTERI STRUCTURE / Unknown Non-Phlebotomy Collection / Unknown 08/25/2022 3:30 PM CDT 08/25/2022 3:30 PM CDT us Melva Lopez APRN, CONE CHOCOLATE DIPPER PATHOLOGY/CYTOLOGY ORDER ANNI Final Result [facility] [address] [place] [address], [place] from Last 3 Months or Most Recently Relevant to Health Maintenance Insurance [employer] SO[employer] Advance Directives Documents on File Type Date Recorded Patient Injection Press Operator Expl anation Power of Vp for Health Care 10/22/2022 5:26 AM POA Care Teams Final Assembly Inspector Relationship Specialty Start Date End Date Eran Renee MD [address] [place], [place] [id number] PCP - General Family Medicine 10/22/22
--- OUTSIDE RECORDS SUMMARY | 2025-03-23 07:16 | XMS_ITS | Encounter Summary ---
Author Organization [facility] Address [address] [place] [address] Phone Care Team Providers Care Multimedia Specialist Name Role Phone Provider, None Primary Care Provider Eran Contreras MD Primary Care Provider [phone] Encounter Details Date Type Department Care Team (Latest Contact Info) Description 10/12/2022 [facility] [address] [place] [address] Felix Godfrey MD [address] [place] [address] Dysfunctional uterine bleeding (Primary Dx); [...] unspecified documented in this encounter Care Teams Multimedia Specialist Relationship Specialty Start Date End Date Provider, None [place] PCP - General 12/30/17 10/21/22 rEan Renee MD [address] [place] [address] PCP - General Family Medicine 10/22/22 documented as of this encounter
== END 2025-03-23 07:15 | disposition home or self-care (01) ==
PROVIDERS: PCP Physician Assistant Medical; Visit Provider Physician Assistant Medical
DX: K76.0 Fatty (change of) liver, not elsewhere classified (principal); R79.89 Other specified abnormal findings of blood chemistry
CPT/HCPCS: 76700